=== PATIENT | female | born 1930 | race Caucasian/White ===

== ENCOUNTER 2017-03-02 11:22 | Emergency (ER) | payer MEDICARE, OTHER ==
[~2017-03-02] VITALS: Ht 165.1 cm; Wt 60.0 kg
[~2017-03-02 11:22] MED LIST: B COTAB3 PO; CRANPOW2; FERR324T4 PO; LORT7.5T3 PO; LOTE10TA PO; PAXI20TA26 PO; SYNT175T PO; VITA400C28 IM
[2017-03-02 11:25] VITALS: BP 101/58; PULSE 85; RESP 16; TEMP 98.4; O2SAT 99
--- NOTE | 2017-03-02 11:45 | PD ---
Physical Exam Time Seen by Provider: 11:43 Narrative 86 y/o female here for evaluation of RLQ abdominal pain for 6 weeks. She was dx with UTI by her PCP and been on 2 different antibiotics with no relief. She endorses some dysuria, occasional chills. Vital signs reviewed. Seen at triage desk. Awaiting bed placement. Data Data Last Documented VS Vital Signs Date Time Temp Pulse Resp B/P Pulse Ox O2 Delivery O2 Flow Rate FiO2 03/02/17 11:25 98.4 85 16 101/58 99 MDM Medical Record Reviewed: Yes Supervised Visit with RAMY: Clark Chapman Mar 02, 2017 11:45
[2017-03-02 12:24] VITALS: BP 200/96
[2017-03-02] MEDS ORDERED: RALO1TAB PO (12:28)
[2017-03-02] MEDS ORDERED: BENA10TA PO (12:28)
[2017-03-02] MEDS ORDERED: PARO10TA2 PO (12:28)
[2017-03-02] MEDS ORDERED: ALBUAER3 INH (12:28)
[2017-03-02] MEDS ORDERED: LEVO50TA4 PO (12:28)
--- NOTE | 2017-03-02 12:44 | PD ---
HPI Chief Complaint: GI Complaint Time Seen by Provider: 12:43 Travel History International Travel<30 days: No Contact w/Intl Traveler<30days: No Traveled to known affect area: No History of Present Illness HPI 86 YO female with PMH of HTN, complete hysterectomy 2/2 uterine cancer presents to the ED for evaluation of 6 week history of RLQ pain. Rated 7/10. No alleviating or exacerbating factors reported. Endorses chills, N/V. Denies decreased appetite, changes in bowel habits, melena, hematochezia. Endorses urinary urgency. States that she took two courses of antibiotics for UTI , last doses 01/19. Also complains of LEFT shoulder pain and limited ROM after fall ~3 weeks ago. 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) Neurologic: No Psychiatric: Yes Reproductive: No Respiratory: No Immunizations Current: Yes Thyroid Disease: Yes Tetanus Vaccination: < 5 Years Past Surgical History Abdominal Surgery: Yes (APPY, HERBERT, TUMMY TUCK) Appendectomy: Yes Cardiac Surgery: No Cholecystectomy: Yes Ear Surgery: No Endocrine Surgery: No Eye Surgery: Yes (CATARACT RIGHT EYE) Gynecologic Surgery: Yes (HYSTERECTOMY) Hysterectomy: Yes Oral Surgery: Yes (TONSILLECTOMY) Pacemaker: No Thoracic Surgery: No Tonsillectomy: Yes Other Surgery: Yes (BREAST RECONSTRUCTION/BILAT SILICONE IMPLANTS APPROX SEP 2008) Social History Alcohol Use: Yes (OCC) Tobacco Use: No Substance Use: No Allergies-Medications (Allergen,Severity, Reaction): Coded Allergies: Morphine (Verified Allergy, Severe, Hives, 03/02/17) Reported Meds & Prescriptions Reported Meds & Active Scripts Active Keflex (Cephalexin) 500 Mg Cap 500 Mg PO Q12H 7 Days Zofran Odt (Ondansetron Odt) 4 Mg Tab 4 Mg SL Q8HR PRN Reported Proair Hfa 8.5 GM Inh (Albuterol Sulfate) 90 Mcg/Act Aer 1 Puff INH Q4H PRN 108 mcg/actuation Raloxifene (Raloxifene HCl) 60 Mg Tab 60 Mg PO DAILY Paroxetine (Paroxetine HCl) 10 Mg Tab 10 Mg PO DAILY Levothyroxine (Levothyroxine Sodium) 50 Mcg Tab 50 Mcg PO DAILY Benazepril (Benazepril HCl) 10 Mg Tab 10 Mg PO DAILY Review of Systems Except as stated in HPI: all other systems reviewed are Neg Physical Exam Narrative GENERAL: Well-nourished, well-developed , alert, pleasant, non-toxic appearing white female. SKIN: Focused skin assessment warm/dry. HEAD: Normocephalic. EYES: No scleral icterus. No injection or drainage. Cataract right eye. NECK: Supple, trachea midline. No JVD or lymphadenopathy. CARDIOVASCULAR: Regular rate and rhythm without murmurs, gallops, or rubs. RESPIRATORY: Breath sounds clear and equal bilaterally. No accessory muscle use. GASTROINTESTINAL: Abdomen soft, nondistended. TTP in the RLQ. Active bowel sounds. MUSCULOSKELETAL: No cyanosis, or edema. FOCUSED LEFT UPPER EXTREMITY EXAM: 2+ radial pulse. +TTP of the distal 1/3 of the humerus. Unable to abduct beyond 90. BACK: Nontender without obvious deformity. No CVA tenderness. Data Data Last Documented VS Vital Signs Date Time Temp Pulse Resp B/P Pulse Ox O2 Delivery O2 Flow Rate FiO2 03/02/17 15:20 87 18 197/89 97 Room Air 03/02/17 11:25 98.4 Orders Complete Blood Count With Diff (03/02/17 12:55) Comprehensive Metabolic Panel (03/02/17 12:55) Lipase (03/02/17 12:55) Lactic Acid (03/02/17 12:55) Prothrombin Time / Inr (Pt) (03/02/17 12:55) Act Partial Throm Time (Ptt) (03/02/17 12:55) Urinalysis - C+S If Indicated (03/02/17 12:55) Ct Abd/Pel W Iv Contrast(Rout) (03/02/17 12:55) Iv Access Insert/Monitor (03/02/17 12:55) Ecg Monitoring (03/02/17 12:55) Oximetry (03/02/17 12:55) NPO (03/02/17 12:55) Sodium Chloride 0.9% Flush (Ns Flush) (03/02/17 13:00) Humerus (Min 2vws) (03/02/17 12:55) Shoulder, Limited(2vws) (03/02/17 12:55) Iohexol 350 Inj (Omnipaque 350 Inj) (03/02/17 14:08) Cath For Specimen (03/02/17 14:38) Urine Culture (03/02/17 14:35) Ceftriaxone Inj (Rocephin Inj) (03/02/17 15:15) Labs Laboratory Tests Test 03/02/17 03/02/17 13:10 14:35 White Blood Count 5.2 TH/MM3 Red Blood Count 4.17 MIL/MM3 Hemoglobin 12.7 GM/DL Hematocrit 37.6 % Mean Corpuscular Volume 90.1 FL Mean Corpuscular Hemoglobin 30.4 PG Mean Corpuscular Hemoglobin 33.7 % Concent Red Cell Distribution Width 13.3 % Platelet Count 255 TH/MM3 Mean Platelet Volume 8.6 FL Neutrophils (%) (Auto) 51.8 % Lymphocytes (%) (Auto) 36.9 % Monocytes (%) (Auto) 7.4 % Eosinophils (%) (Auto) 3.3 % Basophils (%) (Auto) 0.6 % Neutrophils # (Auto) 2.7 TH/MM3 Lymphocytes # (Auto) 1.9 TH/MM3 Monocytes # (Auto) 0.4 TH/MM3 Eosinophils # (Auto) 0.2 TH/MM3 Basophils # (Auto) 0.0 TH/MM3 CBC Comment DIFF FINAL Differential Comment Prothrombin Time 10.9 SEC Prothromb Time International 1.0 RATIO Ratio Activated Partial 25.4 SEC Thromboplast Time Sodium Level 142 MEQ/L Potassium Level 4.2 MEQ/L Chloride Level 109 MEQ/L Carbon Dioxide Level 26.0 MEQ/L Anion Gap 7 MEQ/L Blood Urea Nitrogen 17 MG/DL Creatinine 1.17 MG/DL Estimat Glomerular Filtration 44 ML/MIN Rate Random Glucose 88 MG/DL Lactic Acid Level 0.8 mmol/L Calcium Level 8.7 MG/DL Total Bilirubin 0.3 MG/DL Aspartate Amino Transf 23 U/L (AST/SGOT) Alanine Aminotransferase 22 U/L (ALT/SGPT) Alkaline Phosphatase 72 U/L Total Protein 7.4 GM/DL Albumin 3.7 GM/DL Lipase 105 U/L Urine Color LIGHT-YELLOW Urine Turbidity HAZY Urine pH 6.5 Urine Specific Rosie 1.021 Urine Protein NEG mg/dL Urine Glucose (UA) NEG mg/dL Urine Ketones NEG mg/dL Urine Occult Blood NEG Urine Nitrite NEG Urine Bilirubin NEG Urine Urobilinogen LESS THAN 2.0 MG/DL Urine Leukocyte Esterase LARGE Urine RBC 1 /hpf Urine WBC 113 /hpf Urine WBC Clumps FEW Urine Squamous Epithelial 1 /hpf Cells Urine Bacteria RARE /hpf Urine Mucus FEW /lpf Microscopic Urinalysis Comment CULTURE INDICATED MDM Medical Decision Making Medical Screen Exam Complete: Yes Emergency Medical Condition: Yes Differential Diagnosis appendicitis versus diverticulitis versus inguinal hernia versus ventral hernia versus recurrent uterine CA versus metastasis versus musculoskeletal pain versus humeral fracture versus rotator cuff injury versus other Narrative Course 86 YO female with PMH of HTN, uterine CA presents to the ED for evaluation of 6 week history of RLQ pain. Rated 04/06. No alleviating or exacerbating factors reported. Endorses chills, N/V. Denies decreased appetite, changes in bowel habits, melena, hematochezia. Endorses urinary urgency. States that she took two courses of antibiotics for UTI , last doses 01/19. Also complains of LEFT shoulder pain and limited ROM after fall ~3 weeks ago. Patient is afebrile, hypertensive on presentation. Physical exam reveals a pleasant petite white female in no acute distress. There is tenderness to palpation in the right lower quadrant. No CVA tenderness. LEFT shoulder nontender, no visible deformity, limited abduction. CBC; WBC 5.2, hemoglobin 12.7. Coags: INR 1.0. CMP: Creatinine 1.17, BUN 17. Chronic per records review. Lactic: 0.8. Lipase: 105. UA: Hazy, large leukocyte esterase, 113 wbc's, few clumps, rare bacteria. Culture pending. Shoulder and humeral x-ray: No bony injury, high riding humerus suggesting rotator cuff tear. CT abdomen and pelvis: 1. Diverticula of the sigmoid colon without diverticulitis. 2 cystic mass in the right adnexal region. 3. Small left bladder diverticula. Radiological results per radiologist read. I discussed the results of the workup with the patient. She is adamant that she had a complete hysterectomy and has remaining ovary. She was administered 1 g Rocephin IV. She is prescribed Keflex 500 mg twice a day 7 days, short course of ODT Zofran. She was provided a copy of her radiological studies. She is instructed to follow-up with the primary care provider for further evaluation of the mass in the adnexal region. I stressed the importance of follow up given her history of uterine cancer. She is instructed to follow-up with orthopedist for further evaluation of possible rotator cuff tear. She is instructed to take all antibiotics as prescribed,return for worsening symptoms. She indicated understanding of the instructions and is agreeable to the care plan. She is stable and discharged home. Diagnosis Primary Impression: Adnexal mass Additional Impressions: Diverticulosis of sigmoid colon Injury of left rotator cuff Qualified Code: S46.002A - Injury of left rotator cuff, initial encounter Urinary tract infection Qualified Code: N39.0 - Urinary tract infection without hematuria, site unspecified Referrals: Primary Care Physician Patient Instructions: Diverticulosis (ED), Diverticulosis Diet (ED), General Instructions, Rotator Cuff Injury (ED) Additional Instructions: Rest, hydrate. Take all antibiotics as prescribed, even if your symptoms resolve. Take Zofran as prescribed as needed for further episodes of nausea and vomiting. Follow up with the orthopedist for further evaluation of your shoulder injury. Follow up with your primary care provider as discussed for further evaluation of pelvic mass and diverticulosis. Return to the ED for worsening symptoms or any urgent or emergent medical condition. Med/Other Pt SpecificInfo: Prescription(s) given Scripts Cephalexin (Keflex)500 Mg [id number] Mg PO Q12H 7 Days Ref 0 Prov:Teresa Landers MD 03/02/17 Ondansetron Odt (Zofran Odt)4 Mg Tab4 Mg SL Q8HR PRN (Nausea/Vomiting) #6 TAB Ref 0 Prov:Teresa Landers MD 03/02/17 Disposition: 01 DISCHARGE HOME Condition: Stable Tiara Mccall Mar 02, 2017 12:44
[2017-03-02] MEDS ORDERED: SODIUM CHLORIDE 0.9% FLUSH 10 ML FLUSH IV FLUSH PRN (13:00)
[2017-03-02 13:12] VITALS: O2SAT 98
[2017-03-02 13:23] LABS: AUTOMATED NEUTROPHIL # 2.7 TH/MM3 (1.8-7.7); BASOPHIL % 0.6 % (0.0-2.0); EOSINOPHIL # 0.2 TH/MM3 (0-0.4); EOSINOPHIL % 3.3 % (0.0-4.0); HEMATOCRIT 37.6 % (35.0-46.0); HEMO FLAGS DIFF FINAL; LYMPH % 36.9 % (9.0-44.0); LYMPHOCYTE # 1.9 TH/MM3 (1.0-4.8); MEAN CELL VOLUME 90.1 FL (80.0-100.0); MEAN CORPUSCULAR HEMOGLOBIN 30.4 PG (27.0-34.0); MEAN CORPUSCULAR HGB CONC 33.7 % (32.0-36.0); MONO % 7.4 % (0.0-8.0); NEUT % 51.8 % (16.0-70.0); PLATELET COUNT 255 TH/MM3 (150-450); RED BLOOD COUNT 4.17 MIL/MM3 (4.00-5.30); RED CELL DISTRIBUTION WIDTH 13.3 % (11.6-17.2); WHITE BLOOD COUNT 5.2 TH/MM3 (4.0-11.0)
--- NOTE | 2017-03-02 13:36 | RADRPT ---
EXAM DATE/TIME: 03/02/2017 13:05 [facility] COMPARISON: No previous studies available for comparison. INDICATIONS : Left shoulder pain, fall. MEDICAL HISTORY : None. SURGICAL HISTORY : None. ENCOUNTER: Initial ACUITY: 3 weeks PAIN SCORE: 6/10 LOCATION: Left proximal shoulder FINDINGS: There is a high ridging humeral head consistent with a rotator cuff tear. I see no definite fracture ; however, degree of osteopenia makes detection of subtle nondisplaced fracture difficult. CONCLUSION: High riding humeral head as described above. Rashaad Multani MD FACR on March 02, 2017 at 13:31 Board Certified Radiologist. This report was verified electronically.
--- NOTE | 2017-03-02 13:37 | RADRPT ---
EXAM DATE/TIME: 03/02/2017 13:10 [facility] COMPARISON: No previous studies available for comparison. INDICATIONS : Left arm pain, fall. MEDICAL HISTORY : None. SURGICAL HISTORY : None. ENCOUNTER: Initial ACUITY: 3 weeks PAIN SCORE: 7/10 LOCATION: Left proximal humerus FINDINGS: There is a high ridging humeral head consistent with compete rotator cuff tear. Humerus is intact. Fracture is not appreciated. CONCLUSION: I see no evidence for a fracture. Rashaad Multani MD FACR on March 02, 2017 at 13:31 Board Certified Radiologist. This report was verified electronically.
[2017-03-02 13:40] LABS: APTT (PATIENT) 25.4 SEC (24.3-30.1); PROTHROMBIN TIME - PATIENT 10.9 SEC (9.8-11.6)
[2017-03-02 13:43] LABS: ANION GAP 7 MEQ/L (5-15); AST (GOT) 23 U/L (15-37); BLOOD UREA NITROGEN 17 MG/DL (7-18); CHLORIDE 109 MEQ/L (98-107); GLOMERULAR FILTRATION RATE 44 ML/MIN (>89); POTASSIUM 4.2 MEQ/L (3.5-5.1); SODIUM (NA) 142 MEQ/L (136-145)
[2017-03-02 13:44] LABS: ALT (GPT) 22 U/L (10-53)
[2017-03-02 13:47] LABS: ALKALINE PHOSPHATASE 72 U/L (45-117); TOTAL BILIRUBIN ADULT 0.3 MG/DL (0.2-1.0)
[2017-03-02] MEDS ORDERED: IOHEXOL 350 MG/ML 10 ML VIAL (for RAD DIAG) IV ONE (14:08)
--- NOTE | 2017-03-02 14:46 | RADRPT ---
EXAM DATE/TIME: 03/02/2017 14:00 [facility] COMPARISON: No previous studies available for comparison. INDICATIONS : Right lower abdomen pain for six weeks.>> IV CONTRAST: 70 cc Omnipaque 350 (iohexol) IV ORAL CONTRAST: No oral contrast ingested. RADIATION DOSE: 9.96 CTDIvol (mGy) MEDICAL HISTORY : Hypertension. Uterine cancer SURGICAL HISTORY : Appendectomy. Cholecystectomy. Hysterectomy. ENCOUNTER: Initial ACUITY: 1 day PAIN SCALE: 7/10 LOCATION: Rt. lower quadrant. TECHNIQUE: Volumetric scanning of the abdomen and pelvis was performed. Using automated exposure control and ad justment of the mA and/or kV according to patient size, radiation dose was kept as low as reasonably achievable to obtain optimal diagnostic quality images. FINDINGS: The lung bases are clear. The liver is free of focal defects. Surgical clips are seen in the gallbl adder fossa. Spleen and pancreas are unremarkable. There is mild bowel wall thickening in the secon d portion of the duodenum, non-specific. There is symmetrical renal function. There is mild dilatation of the right ureter when compared to t he left but I see no evidence for renal stone. Region of the cecum and terminal ileum are unremarkable. There is a cystic 2 .8 cm mass in the right adnexal region. Multiple diverticula are present in the sigmoid colon. I do not see any diverticulitis. Bladder is unremarkable. CONCLUSION: 1. Multiple diverticula in the sigmoid colon without evidence for diverticulitis. 2. Cystic mass in the right adnexal region, non-specific but deserves further evaluation. 3. Small left bladder diverticula. 4. Most likely cause for pain is diverticula disease in the sigmoid colon. Rashaad Multani MD FACR on March 02, 2017 at 14:21 Board Certified Radiologist. This report was verified electronically.
[2017-03-02] MEDS ORDERED: ZOFR4TAB3 SL (14:58)
[2017-03-02 14:59] LABS: BACTERIA, URINE RARE /hpf; BLOOD, URINE NEG (NEG); COMMENT (UR) CULTURE INDICATED; CULTURE IF INDICATED CULTURE INDICATED; GLUCOSE,URINE NEG (NEG); KETONE, URINE NEG (NEG); MUCUS URINE FEW /lpf (OCC); NITRITE,URINE NEG (NEG); PH, URINE 6.5 (5.0-8.5); SQUAMOUS EPITHELIAL CELL URINE 1 /hpf (0-5); URINE COLOR LIGHT-YELLOW (YELLW/STRAW)
[2017-03-02] MEDS ORDERED: CEPH-460 PO (15:11)
[2017-03-02] MEDS ORDERED: cefTRIAXone INJ 1,000 MG in SODIUM CHLORIDE 0.9% INJ 100 ML IV ONE (15:15)
[2017-03-02 15:20] VITALS: BP 197/89; PULSE 87; RESP 18; O2SAT 97
[2017-03-02 16:07] VITALS: BP 174/87
--- NOTE | 2017-03-02 16:13 | PD ---
Data Data Last Documented VS Vital Signs Date Time Temp Pulse Resp B/P Pulse Ox O2 Delivery O2 Flow Rate FiO2 03/02/17 16:07 78 20 174/87 98 03/02/17 15:20 Room Air 03/02/17 11:25 98.4 Orders Complete Blood Count With Diff (03/02/17 12:55) Comprehensive Metabolic Panel (03/02/17 12:55) Lipase (03/02/17 12:55) Lactic Acid (03/02/17 12:55) Prothrombin Time / Inr (Pt) (03/02/17 12:55) Act Partial Throm Time (Ptt) (03/02/17 12:55) Urinalysis - C+S If Indicated (03/02/17 12:55) Ct Abd/Pel W Iv Contrast(Rout) (03/02/17 12:55) Iv Access Insert/Monitor (03/02/17 12:55) Ecg Monitoring (03/02/17 12:55) Oximetry (03/02/17 12:55) NPO (03/02/17 12:55) Sodium Chloride 0.9% Flush (Ns Flush) (03/02/17 13:00) Humerus (Min 2vws) (03/02/17 12:55) Shoulder, Limited(2vws) (03/02/17 12:55) Iohexol 350 Inj (Omnipaque 350 Inj) (03/02/17 14:08) Cath For Specimen (03/02/17 14:38) Urine Culture (03/02/17 14:35) Ceftriaxone Inj (Rocephin Inj) (03/02/17 15:15) Labs Laboratory Tests Test 03/02/17 03/02/17 13:10 14:35 White Blood Count 5.2 TH/MM3 Red Blood Count 4.17 MIL/MM3 Hemoglobin 12.7 GM/DL Hematocrit 37.6 % Mean Corpuscular Volume 90.1 FL Mean Corpuscular Hemoglobin 30.4 PG Mean Corpuscular Hemoglobin 33.7 % Concent Red Cell Distribution Width 13.3 % Platelet Count 255 TH/MM3 Mean Platelet Volume 8.6 FL Neutrophils (%) (Auto) 51.8 % Lymphocytes (%) (Auto) 36.9 % Monocytes (%) (Auto) 7.4 % Eosinophils (%) (Auto) 3.3 % Basophils (%) (Auto) 0.6 % Neutrophils # (Auto) 2.7 TH/MM3 Lymphocytes # (Auto) 1.9 TH/MM3 Monocytes # (Auto) 0.4 TH/MM3 Eosinophils # (Auto) 0.2 TH/MM3 Basophils # (Auto) 0.0 TH/MM3 CBC Comment DIFF FINAL Differential Comment Prothrombin Time 10.9 SEC Prothromb Time International 1.0 RATIO Ratio Activated Partial 25.4 SEC Thromboplast Time Sodium Level 142 MEQ/L Potassium Level 4.2 MEQ/L Chloride Level 109 MEQ/L Carbon Dioxide Level 26.0 MEQ/L Anion Gap 7 MEQ/L Blood Urea Nitrogen 17 MG/DL Creatinine 1.17 MG/DL Estimat Glomerular Filtration 44 ML/MIN Rate Random Glucose 88 MG/DL Lactic Acid Level 0.8 mmol/L Calcium Level 8.7 MG/DL Total Bilirubin 0.3 MG/DL Aspartate Amino Transf 23 U/L (AST/SGOT) Alanine Aminotransferase 22 U/L (ALT/SGPT) Alkaline Phosphatase 72 U/L Total Protein 7.4 GM/DL Albumin 3.7 GM/DL Lipase 105 U/L Urine Color LIGHT-YELLOW Urine Turbidity HAZY Urine pH 6.5 Urine Specific [place] 1.021 Urine Protein NEG mg/dL Urine Glucose (UA) NEG mg/dL Urine Ketones NEG mg/dL Urine Occult Blood NEG Urine Nitrite NEG Urine Bilirubin NEG Urine Urobilinogen LESS THAN 2.0 MG/DL Urine Leukocyte Esterase LARGE Urine RBC 1 /hpf Urine WBC 113 /hpf Urine WBC Clumps FEW Urine Squamous Epithelial 1 /hpf Cells Urine Bacteria RARE /hpf Urine Mucus FEW /lpf Microscopic Urinalysis Comment CULTURE INDICATED MDM Supervised Visit with RAMY: Yes Narrative Course The history, exam, and medical decision-making in the associated midlevel provider note were completed with my assistance. I reviewed and agree with the findings presented. I attest that I had a [id number] encounter with the patient on the same day, and personally performed and documented my assessment and findings in the medical record. *My assessment and Findings: This is an 86-year-old female who presents to the emergency department with abdominal discomfort that going on for several days. She was placed on a monitor and an IV was established. Labs are obtained which were all reassuring. Patient has evidence of urinary tract infection which I suspect is causing her symptoms. She'll be treated with antibiotics. She was given a dose here in the emergency department. She is nontoxic appearing and I think she is appropriate for outpatient therapy. Diagnosis Primary Impression: Adnexal mass Additional Impressions: Urinary tract infection Qualified Code: N39.0 - Urinary tract infection without hematuria, site unspecified Diverticulosis of sigmoid colon Injury of left rotator cuff Qualified Code: S46.002A - Injury of left rotator cuff, initial encounter Referrals: Primary Care Physician Patient Instructions: General Instructions, Diverticulosis (ED), Rotator Cuff Injury (ED), Diverticulosis Diet (ED) Departure Forms: Tests/Procedures Additional Instruction: Rest, hydrate. Take all antibiotics as prescribed, even if your symptoms resolve. Take Zofran as prescribed as needed for further episodes of nausea and vomiting. Follow up with the orthopedist for further evaluation of your shoulder injury. Follow up with your primary care provider as discussed for further evaluation of pelvic mass and diverticulosis. Return to the ED for worsening symptoms or any urgent or emergent medical condition. Scripts Cephalexin (Keflex)500 Mg [id number] Mg PO Q12H 7 Days Ref 0 Prov:Teresa Landers MD 03/02/17 Ondansetron Odt (Zofran Odt)4 Mg Tab4 Mg SL Q8HR PRN (Nausea/Vomiting) #6 TAB Ref 0 Prov:Teresa Landers MD 03/02/17 Disposition: 01 DISCHARGE HOME Condition: Stable Teresa Landers MD Mar 02, 2017 16:13
== END 2017-03-02 16:21 | disposition home or self-care (01) ==
LOC: NEPD 11:22
DX: I10 Essential (primary) hypertension (principal); R19.09 Other intra-abdominal and pelvic swelling, mass and lump; B96.20 Unspecified Escherichia coli [E. coli] as the cause of diseases classified elsewhere; K57.30 Diverticulosis of large intestine without perforation or abscess without bleeding; N39.0 Urinary tract infection, site not specified; S46.002A Unspecified injury of muscle(s) and tendon(s) of the rotator cuff of left shoulder, initial encounter; W19.XXXA Unspecified fall, initial encounter
CPT/HCPCS: 73030; 73060; 74177; 80053; 81001; 83605; 83690; 85025; 85610; 85730; 87077; 87086; 87186; 96374; 99285; J0696; Q9967

== ENCOUNTER 2017-09-19 13:09 | Emergency (ER) | payer MEDICARE, OTHER ==
[~2017-09-19] VITALS: Ht 165.1 cm; Wt 53.0 kg
[~2017-09-19 13:09] MED LIST changes: +ALBUAER3 INH; -B COTAB3 PO; +BENA10TA PO; +CEPH-460 PO; -CRANPOW2; -FERR324T4 PO; +LEVO50TA4 PO; -LORT7.5T3 PO; -LOTE10TA PO; +PARO10TA2 PO; -PAXI20TA26 PO; +RALO1TAB PO; -SYNT175T PO; -VITA400C28 IM; +ZOFR4TAB3 SL
[2017-09-19] MEDS ORDERED: IOHEXOL 350 MG/ML 10 ML VIAL (for RAD DIAG) IVCONTRAST ONE (13:10)
[2017-09-19 13:23] VITALS: BP 169/68; PULSE 73; RESP 18; TEMP 97.7; O2SAT 95; O2SAT 98
[2017-09-19 13:28] VITALS: BP 169/68; PULSE 70; RESP 18; TEMP 97.7; O2SAT 98
[2017-09-19] MEDS ORDERED: BETH10TA2 PO (13:32)
--- NOTE | 2017-09-19 13:41 | PD ---
HPI Chief Complaint: Abdominal Pain Time Seen by Provider: 13:16 Travel History International Travel<30 days: No Contact w/Intl Traveler<30days: No Traveled to known affect area: No History of Present Illness HPI Is an 87-year-old female presents emergency Department with bilateral lower quadrant abdominal pain perhaps worse in the left. Patient states been going on for 2 weeks and worsened the point where it had not gone away today. She states that before today and had been waxing and waning, associated with some nausea and nonbilious nonbloody vomiting no changes in stool. Patient states she is getting ready to move to an assisted living facility with her who has dementia. The patient attributed her abdominal discomfort from nervousness secondary to moving. She also endorsed some blood on the toilet paper when she wiped after urinating today.. She states the pain is cramping, moderate, no radiation, associated signs symptoms and context as above. 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) Neurologic: No Psychiatric: Yes Reproductive: No Respiratory: No Immunizations Current: Yes Thyroid Disease: Yes ?: Not Past Surgical History Abdominal Surgery: Yes (APPY, HERBERT, TUMMY TUCK) Appendectomy: Yes Cardiac Surgery: No Cholecystectomy: Yes Ear Surgery: No Endocrine Surgery: No Eye Surgery: Yes (CATARACT RIGHT EYE) Gynecologic Surgery: Yes (HYSTERECTOMY) Hysterectomy: Yes Oral Surgery: Yes (TONSILLECTOMY) Pacemaker: No Thoracic Surgery: No Tonsillectomy: Yes Other Surgery: Yes (BREAST RECONSTRUCTION/BILAT SILICONE IMPLANTS APPROX SEP 2008) Social History Alcohol Use: Yes (OCC) Tobacco Use: No Substance Use: No Allergies-Medications (Allergen,Severity, Reaction): Coded Allergies: morphine (Unverified Allergy, Severe, Hives, 09/19/17) Reported Meds & Prescriptions Reported Meds & Active Scripts Active Zofran Odt (Ondansetron Odt) 4 Mg Tab 4 Mg SL Q6HR PRN Bentyl (Dicyclomine HCl) 10 Mg Cap 10 Mg PO QID PRN Flagyl (Metronidazole) 500 Mg Tab 500 Mg PO BID 7 Days Cipro (Ciprofloxacin HCl) 500 Mg Tab 500 Mg PO BID 7 Days Reported Bethanechol 10 Mg Tab 12.5 Mg PO Q6HR Levothyroxine (Levothyroxine Sodium) 50 Mcg Tab 150 Mcg PO DAILY Benazepril (Benazepril HCl) 10 Mg Tab 10 Mg PO DAILY Review of Systems Except as stated in HPI: all other systems reviewed are Neg Physical Exam Narrative GENERAL: Well-developed, thin but in mild discomfort. SKIN: Focused skin assessment warm/dry. HEAD: Atraumatic. Normocephalic. EYES: Pupils equal and round. No scleral icterus. No injection or drainage. ENT: No nasal bleeding or discharge. Mucous membranes pink and moist. NECK: Trachea midline. No JVD. CARDIOVASCULAR: Regular rate and rhythm. No murmur appreciated. RESPIRATORY: No accessory muscle use. Clear to auscultation. Breath sounds equal bilaterally. GASTROINTESTINAL: Abdomen soft, fairly tender left lower quadrant without any rebound or percussive tenderness. Stephens sign negative, Rovsing sign negative. No psoas not very signs. CVA tenderness negative. nondistended. Hepatic and splenic margins not palpable. MUSCULOSKELETAL: No obvious deformities. No clubbing. No cyanosis. No edema. NEUROLOGICAL: Awake and alert. No obvious cranial nerve deficits. Motor grossly within normal limits. Normal speech. PSYCHIATRIC: Appropriate mood and affect; insight and judgment normal. Data Data Last Documented VS Vital Signs Date Time Temp Pulse Resp B/P (MAP) Pulse Ox O2 Delivery O2 Flow Rate FiO2 09/19/17 18:16 09/19/17 18:15 75 16 98 Room Air 09/19/17 13:28 97.7 Orders Orders Complete Blood Count With Diff (09/19/17 13:52) Comprehensive Metabolic Panel (09/19/17 13:52) Lipase (09/19/17 13:52) Urinalysis - C+S If Indicated (09/19/17 13:52) Ct Abd/Pel W Iv Contrast(Rout) (09/19/17 13:52) Iv Access Insert/Monitor (09/19/17 13:52) Ecg Monitoring (09/19/17 13:52) Oximetry (09/19/17 13:52) Sodium Chloride 0.9% Flush (Ns Flush) (09/19/17 14:00) Dicyclomine (Bentyl) (09/19/17 14:00) Promethazine Inj (Phenergan Inj) (09/19/17 14:30) Ketorolac Inj (Toradol Inj) (09/19/17 14:30) Iohexol 350 Inj (Omnipaque 350 Inj) (09/19/17 13:10) Urine Culture (09/19/17 17:02) Ed Discharge Order (09/19/17 17:52) Labs Laboratory Tests Test 09/19/17 14:00 09/19/17 17:02 White Blood Count 9.5 TH/MM3 Red Blood Count 3.79 MIL/MM3 Hemoglobin 11.6 GM/DL Hematocrit 34.8 % Mean Corpuscular Volume 91.6 FL Mean Corpuscular Hemoglobin 30.7 PG Mean Corpuscular Hemoglobin Concent 33.5 % Red Cell Distribution Width 14.2 % Platelet Count 225 TH/MM3 Mean Platelet Volume 8.6 FL Neutrophils (%) (Auto) 78.8 % Lymphocytes (%) (Auto) 16.7 % Monocytes (%) (Auto) 3.3 % Eosinophils (%) (Auto) 0.7 % Basophils (%) (Auto) 0.5 % Neutrophils # (Auto) 7.5 TH/MM3 Lymphocytes # (Auto) 1.6 TH/MM3 Monocytes # (Auto) 0.3 TH/MM3 Eosinophils # (Auto) 0.1 TH/MM3 Basophils # (Auto) 0.1 TH/MM3 CBC Comment AUTO DIFF Differential Comment AUTO DIFF CONFIRMED Blood Urea Nitrogen 21 MG/DL Creatinine 1.34 MG/DL Random Glucose 100 MG/DL Total Protein 7.1 GM/DL Albumin 3.7 GM/DL Calcium Level 8.7 MG/DL Alkaline Phosphatase 68 U/L Aspartate Amino Transf (AST/SGOT) 30 U/L Alanine Aminotransferase (ALT/SGPT) 23 U/L Total Bilirubin 0.4 MG/DL Sodium Level 141 MEQ/L Potassium Level 4.4 MEQ/L Chloride Level 111 MEQ/L Carbon Dioxide Level 22.1 MEQ/L Anion Gap 8 MEQ/L Estimat Glomerular Filtration Rate 37 ML/MIN Lipase 138 U/L Urine Color YELLOW Urine Turbidity HAZY Urine pH 5.0 Urine Specific [place] 1.021 Urine Protein NEG mg/dL Urine Glucose (UA) NEG mg/dL Urine Ketones NEG mg/dL Urine Occult Blood TRACE Urine Nitrite NEG Urine Bilirubin NEG Urine Urobilinogen LESS THAN 2.0 MG/DL Urine Leukocyte Esterase SMALL Urine RBC 1 /hpf Urine WBC 3 /hpf Urine Squamous Epithelial Cells 2 /hpf Urine Bacteria MOD /hpf Urine Mucus FEW /lpf Microscopic Urinalysis Comment CULTURE INDICATED MDM Medical Decision Making Medical Screen Exam Complete: Yes Emergency Medical Condition: Yes Differential Diagnosis Diverticulitis, colitis, dehydration, colon malignancy, acute kidney injury, electrolyte abnormality Narrative Course Patient roomed in emergency department, initially given doses of Bentyl, she received Zofran in route, vomited up until almost immediately. Toradol and Phenergan were ordered, patient has indications for CAT scan of her abdomen awaiting results. Last 24 hours Impressions Abdomen/Pelvis CT 09/19/17 1352 Signed Impressions: Service Date/Time: Thursday, September 19, 2017 15:31 - CONCLUSION: 1. Diffuse wall thickening indicating colitis of the descending colon. 2. Colonic diverticulosis. 3. Status post cholecystectomy. 4. Old L2 vertebral body fracture with prior kyphoplasty or vertebroplasty. Isrrael Hays MD Labs are reassuring, white count normal, no sepsis criteria. Discussed the patient her results and she is feeling much better after medications. Discussed that she needs to consider going home for outpatient therapy including antibiotics and she is amenable to this. Discussed return to ED criteria at length. She stable for discharge. Diagnosis Primary Impression: Colitis Med/Other Pt SpecificInfo: Prescription(s) given Scripts Ondansetron Odt (Zofran Odt) 4 Mg Tab 4 MG SL Q6HR Y for Nausea/Vomiting, #30 TAB 0 Refills Prov: Bright Bowen MD 09/19/17 Dicyclomine (Bentyl) 10 Mg Cap 10 MG PO QID Y for ABDOMINAL CRAMPING, #20 CAP 0 Refills Prov: Bright Bowen MD 09/19/17 Metronidazole (Flagyl) 500 Mg Tab 500 MG PO BID for Infection for 7 Days, #14 TAB 0 Refills Prov: Bright Bowen MD 09/19/17 Ciprofloxacin (Cipro) 500 Mg Tab 500 MG PO BID for Infection for 7 Days, #14 TAB 0 Refills Prov: Bright Bowen MD 09/19/17 Disposition: 01 DISCHARGE HOME Condition: Stable Bright Bowen MD Sep 19, 2017 13:41
[2017-09-19] MEDS ORDERED: SODIUM CHLORIDE 0.9% FLUSH 10 ML FLUSH IV FLUSH PRN (14:00)
[2017-09-19] MEDS ORDERED: DICYCLOMINE HCL 10 MG CAP PO ONE (14:00)
[2017-09-19 14:18] LABS: AUTOMATED NEUTROPHIL # 7.5 TH/MM3 (1.8-7.7); BASOPHIL # 0.1 TH/MM3 (0-0.2); BASOPHIL % 0.5 % (0.0-2.0); EOSINOPHIL # 0.1 TH/MM3 (0-0.4); EOSINOPHIL % 0.7 % (0.0-4.0); HEMATOCRIT 34.8 % (35.0-46.0); HEMOGLOBIN 11.6 GM/DL (11.6-15.3); LYMPH % 16.7 % (9.0-44.0); LYMPHOCYTE # 1.6 TH/MM3 (1.0-4.8); MEAN CELL VOLUME 91.6 FL (80.0-100.0); MEAN CORPUSCULAR HEMOGLOBIN 30.7 PG (27.0-34.0); MEAN CORPUSCULAR HGB CONC 33.5 % (32.0-36.0); MEAN PLATELET VOLUME 8.6 FL (7.0-11.0); MONO % 3.3 % (0.0-8.0); MONOCYTE # 0.3 TH/MM3 (0-0.9); NEUT % 78.8 % (16.0-70.0); PLATELET COUNT 225 TH/MM3 (150-450); RED BLOOD COUNT 3.79 MIL/MM3 (4.00-5.30); RED CELL DISTRIBUTION WIDTH 14.2 % (11.6-17.2); WHITE BLOOD COUNT 9.5 TH/MM3 (4.0-11.0)
[2017-09-19] MEDS ORDERED: KETOROLAC TROMETHAMINE 30 MG/ML (IVP) VIAL IV PUSH ONE (14:30)
[2017-09-19] MEDS ORDERED: PROMETHAZINE INJ 25 MG/ML VIAL IM ONE (14:30)
[2017-09-19 14:33] LABS: ALBUMIN 3.7 GM/DL (3.4-5.0); ALT (GPT) 23 U/L (10-53); AST (GOT) 30 U/L (15-37); BICARBONATE 22.1 MEQ/L (21.0-32.0); BLOOD UREA NITROGEN 21 MG/DL (7-18); CALCIUM 8.7 MG/DL (8.5-10.1); CHLORIDE 111 MEQ/L (98-107); CREATININE 1.34 MG/DL (0.50-1.00); GLOMERULAR FILTRATION RATE 37 ML/MIN (>89); GLUCOSE,RANDOM 100 MG/DL (74-106); LIPASE 138 U/L (73-393); SODIUM (NA) 141 MEQ/L (136-145)
[2017-09-19 14:36] LABS: ALKALINE PHOSPHATASE 68 U/L (45-117); TOTAL BILIRUBIN ADULT 0.4 MG/DL (0.2-1.0); TOTAL PROTEIN 7.1 GM/DL (6.4-8.2)
--- NOTE | 2017-09-19 16:09 | RADRPT ---
EXAM DATE/TIME: 09/19/2017 15:31 [facility] COMPARISON: CT ABDOMEN & PELVIS W CONTRAST, March 02, 2017, 14:00. INDICATIONS : Abdominal pain, nausea and vomiting. IV CONTRAST: 96 cc Omnipaque 350 (iohexol) IV ORAL CONTRAST: No oral contrast ingested. RADIATION DOSE: 6.64 CTDIvol (mGy) MEDICAL HISTORY : Hypertension. Uterine cancer. SURGICAL HISTORY : Appendectomy. Cholecystectomy.Hysterectomy.Tummy tuck. ENCOUNTER: Initial ACUITY: 1 day PAIN SCALE: 6/10 LOCATION: Bilateral upper quadrant TECHNIQUE: Volumetric scanning of the abdomen and pelvis was performed. Using automated exposure control and ad justment of the mA and/or kV according to patient size, radiation dose was kept as low as reasonably achievable to obtain optimal diagnostic quality images. DICOM format image data is available electro nically for review and comparison. FINDINGS: LOWER LUNGS: The visualized lower lungs are clear. LIVER: Status post cholecystectomy. Liver within normal limits. SPLEEN: Normal size without lesion. PANCREAS: Within normal limits. KIDNEYS: Normal in size and shape. There is no mass, stone or hydronephrosis. ADRENAL GLANDS: Within normal limits. VASCULAR: Diffuse arterial calcification. Abdominal aortic diameter within normal limits. BOWEL/MESENTERY: Circumferential colonic wall thickening from the level of the splenic flexure to the proximal sigmoid colon. Findings suggest colitis. Scattered colonic diverticula. No free air or free fluid. ABDOMINAL WALL: Within normal limits. RETROPERITONEUM: There is no lymphadenopathy. BLADDER: 2 cm posterior urinary bladder diverticulum on the left. REPRODUCTIVE: Within normal limits. INGUINAL: There is no lymphadenopathy or hernia. MUSCULOSKELETAL: Degenerative findings the lumbar spine. Old fracture with vertebroplasty or kyphoplasty at L2 CONCLUSION: 1. Diffuse wall thickening indicating colitis of the descending colon. 2. Colonic diverticulosis. 3. Status post cholecystectomy. 4. Old L2 vertebral body fracture with prior kyphoplasty or vertebroplasty. Isrrael Hays MD on September 19, 2017 at 16:04 Board Certified Radiologist. This report was verified electronically.
[2017-09-19 17:40] LABS: BACTERIA, URINE MOD /hpf; BILIRUBIN, URINE NEG (NEG); BLOOD, URINE TRACE (NEG); GLUCOSE,URINE NEG (NEG); KETONE, URINE NEG (NEG); MUCUS URINE FEW /lpf (OCC); NITRITE,URINE NEG (NEG); SQUAMOUS EPITHELIAL CELL URINE 2 /hpf (0-5); URINE COLOR YELLOW (YELLW/STRAW); URINE LEUKOCYTE ESTERASE SMALL (NEG)
[2017-09-19] MEDS ORDERED: METR-1 PO (17:49)
[2017-09-19] MEDS ORDERED: CIPR-9 PO (17:49)
[2017-09-19] MEDS ORDERED: DICY10 PO (17:50)
[2017-09-19] MEDS ORDERED: ZOFR4TAB3 SL (17:50)
[2017-09-19 18:15] VITALS: BP 177/80; PULSE 75; RESP 16; O2SAT 98
== END 2017-09-19 18:50 | disposition home or self-care (01) ==
LOC: NEPC 13:09
DX: K52.9 Noninfective gastroenteritis and colitis, unspecified (principal); I10 Essential (primary) hypertension; B96.20 Unspecified Escherichia coli [E. coli] as the cause of diseases classified elsewhere
CPT/HCPCS: 74177; 80053; 81001; 83690; 85025; 87077; 87086; 87186; 96372; 96374; 99285; J1885; J2550; Q9967